=== PATIENT | male | born 1965 | race Caucasian/White ===

== ENCOUNTER → 2018-01-19 18:30 | Outpatient (CLI) | payer MEDICARE | END | disposition home or self-care (01) | LOC: D.CT 18:30 | DX: R19.00 Intra-abdominal and pelvic swelling, mass and lump, unspecified site (principal) ==

== ENCOUNTER → 2020-06-08 14:50 | Outpatient (CLI) | payer MEDICARE ==
[2020-03-05 11:19] VITALS: BMI 46.6
[~2020-06-08 14:50] MED LIST: HUMULIN R; HYDROCHLOROTH12.5 M1 PO; LISINOPRIL2.5 MG PO; LYRICA150 MG PO; NAPROXEN250 MG PO; OMEPRAZOLE20 M1 PO; TOZAL SOFTGEL1 EACH PO; ULTRAM50 MG PO
== END | disposition home or self-care (01) ==
LOC: D.CT 14:50
PROVIDERS: ATTEND Radiology Diagnostic Radiology
DX: D69.6 Thrombocytopenia, unspecified (principal); R16.1 Splenomegaly, not elsewhere classified